=== PATIENT | female | born 1940 | race Caucasian/White ===

== ENCOUNTER 2018-04-03 18:09 | Inpatient (IN) | payer BC ==
[2018-04-03 18:46] LABS: ADD MAN DIFF? NO
[2018-04-03 18:48] LABS: WHITE BLOOD COUNT 10.5 10^3/ul (4.8-10.8)
[2018-04-03 18:48] LABS: BASOPHILS % 0.2 % (0.0-2.0); EOSINOPHILS % 0.1 % (0.0-7.0); HEMATOCRIT 40.5 % (37.0-47.0); HEMOGLOBIN 13.9 g/dl (12.0-16.0); LYMPHOCYTES # 1.2 10^3/ul (0.8-2.9); LYMPHOCYTES % 11.2 % (15.0-51.0); MEAN CORPUSCULAR HEMOGLOBIN 29.8 pg (29.0-33.0); MEAN CORPUSCULAR HGB CONC 34.3 g/dl (32.0-37.0); MEAN CORPUSCULAR VOLUME 86.9 fl (82.0-101.0); MEAN PLATELET VOLUME 9.4 fl (7.4-10.4); MONOCYTE # 0.8 10^3/ul (0.3-0.9); MONOCYTES % 7.2 % (0.0-11.0); NEUTROPHIL # 8.5 10^3/ul (1.6-7.5); NEUTROPHILS % 80.9 % (39.0-77.0); PLATELET COUNT 173 10^3/UL (140-415); RED BLOOD COUNT 4.66 10^6/ul (4.20-5.40)
[2018-04-03] MEDS: morphine 2 MG INJ IV (18:52)
[2018-04-03] MEDS: ONDANSETRON 4 MG INJ IV (18:52)
[2018-04-03 19:08] LABS: INR 0.93; PARTIAL THROMBOPLASTIN TIME 30.4 Sec (25.0-35.0); PROTIME 12.5 Sec (11.9-14.9)
[2018-04-03 19:10] LABS: ANION GAP 11 (8-16); BLOOD UREA NITROGEN 18 mg/dl (7-20); CALCIUM 10.3 mg/dl (8.4-10.2); CARBON DIOXIDE 21 mmol/L (21-31); CHLORIDE 113 mmol/L (97-110); CREATININE 0.75 mg/dl (0.44-1.00); GLUCOSE 143 mg/dl (70-220); SODIUM 142 mmol/L (135-144)
[2018-04-03 19:15] LABS: POTASSIUM 2.8 mmol/L (3.5-5.1)
[2018-04-03] MEDS: POTASSIUM CHLORIDE (SR) 20 MEQ TAB PO (20:09)
[2018-04-03] MEDS ORDERED: ACETAMINOPHEN 325 MG TAB PO (21:30)
[2018-04-03] MEDS ORDERED: ONDANSETRON 4 MG INJ IV (21:30)
[2018-04-03] MEDS: hydrALAzine 20 MG INJ IV (23:01)
[2018-04-04] MEDS: morphine 4 MG/ML VIAL IV (00:16)
[2018-04-04] MEDS ORDERED: NACL 0.9% 3 ML SYG IV (05:30)
[2018-04-04] MEDS ORDERED: ALBUTEROL/IPRATROPIUM (NEB) 3 ML AMP HHN (05:30)
[2018-04-04] MEDS ORDERED: ONDANSETRON 4 MG INJ IV (05:30)
[2018-04-04] MEDS: PANTOPRAZOLE 40 MG INJ IV (05:58)
[2018-04-04] MEDS: DEXTROSE 5%-0.45% NACL 1,000 ML IV ×2 (05:59→19:04)
[2018-04-04] MEDS: morphine 2 MG INJ IV ×3 (06:04→16:48)
[2018-04-04 06:11] LABS: ADD MAN DIFF? NO
[2018-04-04 06:23] LABS: BASOPHILS % 0.3 % (0.0-2.0); EOSINOPHILS # 0.1 10^3/ul (0.0-0.5); EOSINOPHILS % 0.5 % (0.0-7.0); HEMATOCRIT 38.5 % (37.0-47.0); HEMOGLOBIN 13.3 g/dl (12.0-16.0); LYMPHOCYTES % 10.4 % (15.0-51.0); MEAN CORPUSCULAR HEMOGLOBIN 30.1 pg (29.0-33.0); MEAN CORPUSCULAR HGB CONC 34.5 g/dl (32.0-37.0); MEAN CORPUSCULAR VOLUME 87.1 fl (82.0-101.0); MEAN PLATELET VOLUME 10.1 fl (7.4-10.4); MONOCYTE # 0.6 10^3/ul (0.3-0.9); MONOCYTES % 6.7 % (0.0-11.0); NEUTROPHIL # 7.5 10^3/ul (1.6-7.5); NEUTROPHILS % 81.8 % (39.0-77.0); PLATELET COUNT 157 10^3/UL (140-415); RED BLOOD COUNT 4.42 10^6/ul (4.20-5.40); RED CELL DISTRIBUTION WIDTH 13.2 % (11.5-14.5)
[2018-04-04 06:23] LABS: WHITE BLOOD COUNT 9.2 10^3/ul (4.8-10.8)
[2018-04-04 06:49] LABS: ALANINE AMINOTRANSFERASE 26 IU/L (13-69); ALBUMIN 3.5 g/dl (3.3-4.9); ALBUMIN/GLOBULIN RATIO 1.25; ALKALINE PHOSPHATASE 43 IU/L (42-121); ANION GAP 12 (8-16); ASPARTATE AMINO TRANSFERASE 23 IU/L (15-46); BLOOD UREA NITROGEN 16 mg/dl (7-20); CALCIUM 9.8 mg/dl (8.4-10.2); CARBON DIOXIDE 22 mmol/L (21-31); CHLORIDE 111 mmol/L (97-110); CREATININE 0.68 mg/dl (0.44-1.00); GLUCOSE 153 mg/dl (70-220); POTASSIUM 3.4 mmol/L (3.5-5.1); SODIUM 142 mmol/L (135-144); TOTAL PROTEIN 6.3 g/dl (6.1-8.1)
[2018-04-04] MEDS: HYDROCODONE/APAP (5/325) TAB PO (19:41)
[2018-04-04] MEDS: MEMANTINE 5 MG TAB PO (20:15)
[2018-04-04] MEDS: ATORVASTATIN 10 MG TAB PO (20:16)
[2018-04-04] MEDS: DONEPEZIL 5 MG TAB PO (20:17)
[2018-04-04] MEDS: HEPARIN 5,000 UNIT/0.5 ML VIAL SC (20:26)
[2018-04-04] MEDS: HALOPERIDOL 5 MG INJ IM (23:51)
[2018-04-05] MEDS: morphine 2 MG INJ IV ×4 (01:20→22:42)
[2018-04-05] MEDS: PANTOPRAZOLE 40 MG INJ IV (05:37)
[2018-04-05] MEDS: HYDROCHLOROTHIAZIDE 12.5 MG CAP PO (05:39)
[2018-04-05 06:03] LABS: ADD MAN DIFF? NO
[2018-04-05 06:21] LABS: WHITE BLOOD COUNT 8.7 10^3/ul (4.8-10.8)
[2018-04-05 06:21] LABS: BASOPHILS % 0.2 % (0.0-2.0); EOSINOPHILS % 0.2 % (0.0-7.0); HEMATOCRIT 38.3 % (37.0-47.0); HEMOGLOBIN 13.3 g/dl (12.0-16.0); LYMPHOCYTES # 0.8 10^3/ul (0.8-2.9); LYMPHOCYTES % 8.7 % (15.0-51.0); MEAN CORPUSCULAR HGB CONC 34.7 g/dl (32.0-37.0); MEAN CORPUSCULAR VOLUME 86.3 fl (82.0-101.0); MEAN PLATELET VOLUME 10.5 fl (7.4-10.4); MONOCYTE # 0.8 10^3/ul (0.3-0.9); MONOCYTES % 9.2 % (0.0-11.0); NEUTROPHIL # 7.1 10^3/ul (1.6-7.5); NEUTROPHILS % 81.1 % (39.0-77.0); PLATELET COUNT 131 10^3/UL (140-415); RED BLOOD COUNT 4.44 10^6/ul (4.20-5.40); RED CELL DISTRIBUTION WIDTH 13.1 % (11.5-14.5)
[2018-04-05 06:58] LABS: ANION GAP 12 (8-16); BLOOD UREA NITROGEN 7 mg/dl (7-20); CARBON DIOXIDE 23 mmol/L (21-31); CHLORIDE 107 mmol/L (97-110); CREATININE 0.56 mg/dl (0.44-1.00); GLUCOSE 187 mg/dl (70-220); MAGNESIUM 1.8 mg/dl (1.7-2.5); PHOSPHORUS 3.1 mg/dl (2.5-4.9); SODIUM 139 mmol/L (135-144)
[2018-04-05 07:08] LABS: POTASSIUM 2.8 mmol/L (3.5-5.1)
[2018-04-05] MEDS ORDERED: PANTOPRAZOLE (EC) 40 MG TAB PO (07:20)
[2018-04-05] MEDS: POTASSIUM CHLORIDE (SR) 20 MEQ TAB PO ×2 (07:24→09:08)
[2018-04-05] MEDS: MEMANTINE 5 MG TAB PO ×2 (08:07→22:04)
[2018-04-05] MEDS: DEXTROSE 5%-0.45% NACL 1,000 ML IV ×2 (08:07→22:03)
[2018-04-05] MEDS: ATENOLOL 50 MG TAB PO (08:08)
[2018-04-05] MEDS: HEPARIN 5,000 UNIT/0.5 ML VIAL SC ×2 (08:10→22:04)
[2018-04-05] MEDS ORDERED: MECLIZINE 12.5 MG TAB PO ×2 (09:00)
[2018-04-05 12:04] LABS: ANION GAP 9 (8-16); BLOOD UREA NITROGEN 6 mg/dl (7-20); CALCIUM 9.1 mg/dl (8.4-10.2); CARBON DIOXIDE 25 mmol/L (21-31); CHLORIDE 104 mmol/L (97-110); CREATININE 0.49 mg/dl (0.44-1.00); GLUCOSE 145 mg/dl (70-220); POTASSIUM 3.3 mmol/L (3.5-5.1); SODIUM 135 mmol/L (135-144)
[2018-04-05 16:59] LABS: CHOL/HDL RATIO 2.6 RATIO; HDL CHOLESTEROL 85 mg/dl (33-92); LDL CHOLESTEROL,CALCULATED 105 mg/dl; TRIGLYCERIDES 166 mg/dl (0-149)
[2018-04-05 16:59] LABS: CHOLESTEROL 223 mg/dl (100-200)
[2018-04-05 17:04] LABS: HEMOGLOBIN A1C 5.6 % (0-5.9)
[2018-04-05 17:08] LABS: B-TYPE NATRIURETIC PEPTIDE 1090 PG/ML (0-450)
[2018-04-05 17:29] LABS: THYROID STIMULATING HORMONE 0.668 MIU/L (0.465-4.680)
[2018-04-05 17:45] LABS: TROPONIN-I < 0.012 ng/ml (0.000-0.120)
[2018-04-05] MEDS: ATORVASTATIN 10 MG TAB PO (22:03)
[2018-04-05] MEDS: DONEPEZIL 5 MG TAB PO (22:04)
[2018-04-06 01:17] LABS: TROPONIN-I 0.014 ng/ml (0.000-0.120)
[2018-04-06] MEDS: morphine 2 MG INJ IV ×3 (04:17→13:45)
[2018-04-06 05:46] LABS: TROPONIN-I < 0.012 ng/ml (0.000-0.120)
[2018-04-06] MEDS: PANTOPRAZOLE 40 MG INJ IV (06:04)
[2018-04-06] MEDS: HEPARIN 5,000 UNIT/0.5 ML VIAL SC ×2 (09:00→21:00)
[2018-04-06] MEDS: ATENOLOL 50 MG TAB PO (09:00)
[2018-04-06] MEDS: MEMANTINE 5 MG TAB PO ×2 (09:00→21:23)
[2018-04-06] MEDS ORDERED: LORAZEPAM 2 MG INJ IV (09:30)
[2018-04-06] MEDS: DEXTROSE 5%-0.45% NACL 1,000 ML IV (11:42)
[2018-04-06 13:31] LABS: TROPONIN-I < 0.012 ng/ml (0.000-0.120)
[2018-04-06 18:56] LABS: TROPONIN-I < 0.012 ng/ml (0.000-0.120)
[2018-04-06] MEDS: ATORVASTATIN 10 MG TAB PO (21:23)
[2018-04-06] MEDS: DONEPEZIL 5 MG TAB PO (21:23)
[2018-04-07] MEDS: DEXTROSE 5%-0.45% NACL 1,000 ML IV ×2 (01:14→13:27)
[2018-04-07 01:21] LABS: TROPONIN-I < 0.012 ng/ml (0.000-0.120)
[2018-04-07] MEDS: morphine 2 MG INJ IV (02:02)
[2018-04-07 05:17] LABS: ADD MAN DIFF? NO
[2018-04-07 05:30] LABS: BASOPHILS % 0.7 % (0.0-2.0); EOSINOPHILS # 0.4 10^3/ul (0.0-0.5); EOSINOPHILS % 7.1 % (0.0-7.0); HEMATOCRIT 39.5 % (37.0-47.0); HEMOGLOBIN 13.7 g/dl (12.0-16.0); LYMPHOCYTES # 0.9 10^3/ul (0.8-2.9); LYMPHOCYTES % 17.3 % (15.0-51.0); MEAN CORPUSCULAR HGB CONC 34.7 g/dl (32.0-37.0); MEAN CORPUSCULAR VOLUME 86.4 fl (82.0-101.0); MEAN PLATELET VOLUME 10.3 fl (7.4-10.4); MONOCYTE # 0.6 10^3/ul (0.3-0.9); MONOCYTES % 11.7 % (0.0-11.0); NEUTROPHIL # 3.4 10^3/ul (1.6-7.5); PLATELET COUNT 157 10^3/UL (140-415); RED BLOOD COUNT 4.57 10^6/ul (4.20-5.40); RED CELL DISTRIBUTION WIDTH 12.7 % (11.5-14.5)
[2018-04-07 05:30] LABS: WHITE BLOOD COUNT 5.4 10^3/ul (4.8-10.8)
[2018-04-07 05:41] LABS: MAGNESIUM 2.1 mg/dl (1.7-2.5)
[2018-04-07 05:41] LABS: PHOSPHORUS 3.6 mg/dl (2.5-4.9)
[2018-04-07 06:04] LABS: ANION GAP 11 (8-16); BLOOD UREA NITROGEN 9 mg/dl (7-20); CALCIUM 9.6 mg/dl (8.4-10.2); CARBON DIOXIDE 25 mmol/L (21-31); CHLORIDE 108 mmol/L (97-110); CREATININE 0.55 mg/dl (0.44-1.00); GLUCOSE 145 mg/dl (70-220); POTASSIUM 3.6 mmol/L (3.5-5.1); SODIUM 140 mmol/L (135-144)
[2018-04-07] MEDS: PANTOPRAZOLE 40 MG INJ IV (06:13)
[2018-04-07] MEDS: ATENOLOL 50 MG TAB PO (08:59)
[2018-04-07] MEDS: HEPARIN 5,000 UNIT/0.5 ML VIAL SC ×2 (08:59→21:03)
[2018-04-07] MEDS: MEMANTINE 5 MG TAB PO ×2 (08:59→21:00)
[2018-04-07] MEDS: POLYMYXIN/BACITRACIN 1L IRRIG (13:39)
[2018-04-07] MEDS ORDERED: GLYCOPYRROLATE 0.4 MG INJ (13:44)
[2018-04-07] MEDS ORDERED: SUCCINYLCHOLINE CHLORIDE 100 MG/5 ML SYG IV (13:44)
[2018-04-07] MEDS ORDERED: PROPOFOL 20 ML (13:44)
[2018-04-07] MEDS ORDERED: LIDOCAINE 2% (SDV) 5 ML INJ (13:44)
[2018-04-07] MEDS ORDERED: ROCURONIUM 50 MG INJ (13:44)
[2018-04-07] MEDS ORDERED: MEPERIDINE 100 MG INJ (13:44)
[2018-04-07] MEDS ORDERED: NEOSTIGMINE 3 MG/3 ML SYRINGE (13:44)
[2018-04-07] MEDS ORDERED: CEFAZOLIN 1 GM INJ ×2 (14:49)
[2018-04-07] MEDS ORDERED: METOCLOPRAMIDE 10 MG INJ (15:48)
[2018-04-07] MEDS ORDERED: ONDANSETRON 4 MG INJ (15:48)
[2018-04-07] MEDS ORDERED: EPHEDrine SULFATE 50 MG/5 ML SYG IV (16:00)
[2018-04-07] MEDS ORDERED: LABETALOL HCL 20MG INJ IV (16:00)
[2018-04-07] MEDS ORDERED: OXYCODONE/ACETAMINOPHEN (5/325) TAB PO ×2 (16:00)
[2018-04-07] MEDS ORDERED: HYDROmorphONE 1 MG/5 ML IV SYRINGE IV (16:00)
[2018-04-07] MEDS ORDERED: FENTAnyl 50 MCG/ML VIAL IV ×3 (16:00)
[2018-04-07] MEDS ORDERED: METOCLOPRAMIDE 10 MG INJ IV (16:00)
[2018-04-07] MEDS ORDERED: MIDAZOLAM 1 MG/ML 2 ML INJ IV (16:00)
[2018-04-07] MEDS: HYDROmorphONE 1 MG/5 ML IV SYRINGE IV ×2 (16:53→17:04)
[2018-04-07] MEDS: ONDANSETRON 4 MG INJ IV (16:53)
[2018-04-07] MEDS ORDERED: NACL 0.9% 3 ML SYG IV (17:00)
[2018-04-07] MEDS ORDERED: morphine 4 MG/ML VIAL IV (17:00)
[2018-04-07 17:06] LABS: ADD MAN DIFF? NO
[2018-04-07 17:07] LABS: BASOPHIL # 0.1 10^3/ul (0.0-0.1); BASOPHILS % 0.5 % (0.0-2.0); EOSINOPHILS # 0.4 10^3/ul (0.0-0.5); EOSINOPHILS % 3.6 % (0.0-7.0); HEMOGLOBIN 12.8 g/dl (12.0-16.0); LYMPHOCYTES # 1.1 10^3/ul (0.8-2.9); LYMPHOCYTES % 11.2 % (15.0-51.0); MEAN CORPUSCULAR HEMOGLOBIN 29.9 pg (29.0-33.0); MEAN CORPUSCULAR HGB CONC 33.7 g/dl (32.0-37.0); MEAN CORPUSCULAR VOLUME 88.8 fl (82.0-101.0); MEAN PLATELET VOLUME 9.9 fl (7.4-10.4); MONOCYTE # 0.9 10^3/ul (0.3-0.9); MONOCYTES % 8.8 % (0.0-11.0); NEUTROPHIL # 7.5 10^3/ul (1.6-7.5); NEUTROPHILS % 75.4 % (39.0-77.0); PLATELET COUNT 176 10^3/UL (140-415); RED BLOOD COUNT 4.28 10^6/ul (4.20-5.40); RED CELL DISTRIBUTION WIDTH 12.4 % (11.5-14.5)
[2018-04-07 17:07] LABS: WHITE BLOOD COUNT 9.9 10^3/ul (4.8-10.8)
[2018-04-07] MEDS: CEFAZOLIN 1 GM/50 ML (PMX) 50 ML IVPB (17:36)
[2018-04-07] MEDS: MEPERIDINE 25 MG INJ IV (17:36)
[2018-04-07 17:39] LABS: ANION GAP 12 (8-16); BLOOD UREA NITROGEN 12 mg/dl (7-20); CALCIUM 9.5 mg/dl (8.4-10.2); CARBON DIOXIDE 24 mmol/L (21-31); CHLORIDE 108 mmol/L (97-110); CREATININE 0.62 mg/dl (0.44-1.00); GLUCOSE 151 mg/dl (70-220); POTASSIUM 3.9 mmol/L (3.5-5.1); SODIUM 140 mmol/L (135-144)
[2018-04-07] MEDS: hydrALAzine 20 MG INJ IV (18:00)
[2018-04-07] MEDS: DIPHENHYDRAMINE 50 MG INJ IV (18:00)
[2018-04-07] MEDS ORDERED: HYDROCODONE/APAP (5/325) TAB NGT (18:00)
[2018-04-07] MEDS: DEXTROSE 5%-LR 1,000 ML IV (19:58)
[2018-04-07] MEDS: ATORVASTATIN 10 MG TAB PO (21:00)
[2018-04-07] MEDS: DONEPEZIL 5 MG TAB PO (21:00)
[2018-04-08] MEDS: CEFAZOLIN 1 GM/50 ML (PMX) 50 ML IVPB ×2 (00:22→09:16)
[2018-04-08] MEDS: morphine 2 MG INJ IV ×2 (01:04→05:32)
[2018-04-08 05:21] LABS: ADD MAN DIFF? NO
[2018-04-08] MEDS: DEXTROSE 5%-LR 1,000 ML IV ×3 (05:26→18:51)
[2018-04-08] MEDS: PANTOPRAZOLE 40 MG INJ IV (05:26)
[2018-04-08 05:27] LABS: WHITE BLOOD COUNT 6.6 10^3/ul (4.8-10.8)
[2018-04-08 05:27] LABS: ABNORMAL IP MESSAGE 1; BASOPHILS % 0.3 % (0.0-2.0); EOSINOPHILS % 0.2 % (0.0-7.0); HEMATOCRIT 32.9 % (37.0-47.0); HEMOGLOBIN 11.4 g/dl (12.0-16.0); LYMPHOCYTES # 0.5 10^3/ul (0.8-2.9); LYMPHOCYTES % 6.9 % (15.0-51.0); MEAN CORPUSCULAR HEMOGLOBIN 30.1 pg (29.0-33.0); MEAN CORPUSCULAR HGB CONC 34.7 g/dl (32.0-37.0); MEAN CORPUSCULAR VOLUME 86.8 fl (82.0-101.0); MEAN PLATELET VOLUME 10.5 fl (7.4-10.4); MONOCYTE # 0.9 10^3/ul (0.3-0.9); MONOCYTES % 13.9 % (0.0-11.0); NEUTROPHIL # 5.2 10^3/ul (1.6-7.5); NEUTROPHILS % 78.2 % (39.0-77.0); PLATELET COUNT 158 10^3/UL (140-415); RED BLOOD COUNT 3.79 10^6/ul (4.20-5.40); RED CELL DISTRIBUTION WIDTH 12.7 % (11.5-14.5)
[2018-04-08 05:33] LABS: POSITIVE DIFF @See below
[2018-04-08 05:55] LABS: PHOSPHORUS 2.6 mg/dl (2.5-4.9)
[2018-04-08 05:55] LABS: MAGNESIUM 1.8 mg/dl (1.7-2.5)
[2018-04-08 05:56] LABS: ANION GAP 11 (8-16); BLOOD UREA NITROGEN 11 mg/dl (7-20); CALCIUM 9.2 mg/dl (8.4-10.2); CARBON DIOXIDE 24 mmol/L (21-31); CHLORIDE 106 mmol/L (97-110); CREATININE 0.49 mg/dl (0.44-1.00); GLUCOSE 158 mg/dl (70-220); POTASSIUM 3.6 mmol/L (3.5-5.1); SODIUM 137 mmol/L (135-144)
[2018-04-08] MEDS ORDERED: ENOXAPARIN 40 MG/0.4 ML SYG SC (09:00)
[2018-04-08] MEDS: MEMANTINE 5 MG TAB PO ×2 (09:17→20:49)
[2018-04-08] MEDS: ATENOLOL 50 MG TAB PO (09:20)
[2018-04-08] MEDS: traMADol 50 MG TAB PO (09:20)
[2018-04-08] MEDS: HEPARIN 5,000 UNIT/0.5 ML VIAL SC ×2 (09:22→20:59)
[2018-04-08] MEDS: HYDROCODONE/APAP (5/325) TAB PO (13:10)
[2018-04-08] MEDS: DONEPEZIL 5 MG TAB PO (20:49)
[2018-04-08] MEDS: ATORVASTATIN 10 MG TAB PO (20:49)
[2018-04-09] MEDS: traMADol 50 MG TAB PO (00:36)
[2018-04-09 05:16] LABS: ADD MAN DIFF? NO
[2018-04-09] MEDS: PANTOPRAZOLE 40 MG INJ IV (05:16)
[2018-04-09 05:17] LABS: BASOPHILS % 0.5 % (0.0-2.0); EOSINOPHILS # 0.2 10^3/ul (0.0-0.5); EOSINOPHILS % 2.4 % (0.0-7.0); HEMATOCRIT 29.2 % (37.0-47.0); LYMPHOCYTES # 0.8 10^3/ul (0.8-2.9); LYMPHOCYTES % 12.2 % (15.0-51.0); MEAN CORPUSCULAR HEMOGLOBIN 29.8 pg (29.0-33.0); MEAN CORPUSCULAR HGB CONC 34.2 g/dl (32.0-37.0); MEAN CORPUSCULAR VOLUME 86.9 fl (82.0-101.0); MEAN PLATELET VOLUME 10.1 fl (7.4-10.4); MONOCYTES % 14.8 % (0.0-11.0); NEUTROPHIL # 4.6 10^3/ul (1.6-7.5); NEUTROPHILS % 69.6 % (39.0-77.0); PLATELET COUNT 155 10^3/UL (140-415); RED BLOOD COUNT 3.36 10^6/ul (4.20-5.40); RED CELL DISTRIBUTION WIDTH 12.3 % (11.5-14.5)
[2018-04-09 05:17] LABS: WHITE BLOOD COUNT 6.6 10^3/ul (4.8-10.8)
[2018-04-09 05:35] LABS: PHOSPHORUS 2.6 mg/dl (2.5-4.9)
[2018-04-09 05:36] LABS: ANION GAP 11 (8-16); BLOOD UREA NITROGEN 10 mg/dl (7-20); CALCIUM 9.1 mg/dl (8.4-10.2); CARBON DIOXIDE 26 mmol/L (21-31); CHLORIDE 104 mmol/L (97-110); GLUCOSE 128 mg/dl (70-220); POTASSIUM 3.3 mmol/L (3.5-5.1); SODIUM 138 mmol/L (135-144)
[2018-04-09] MEDS: POTASSIUM CHLORIDE (SR) 20 MEQ TAB PO (06:26)
[2018-04-09] MEDS: DEXTROSE 5%-LR 1,000 ML IV (08:17)
[2018-04-09] MEDS: POLYETHYLENE GLYCOL 17 GM PACKET PO (08:17)
[2018-04-09] MEDS: DOCUSATE SODIUM 100 MG CAP PO (08:17)
[2018-04-09] MEDS: MEMANTINE 5 MG TAB PO (08:17)
[2018-04-09] MEDS: ATENOLOL 50 MG TAB PO (08:19)
[2018-04-09] MEDS: HEPARIN 5,000 UNIT/0.5 ML VIAL SC (08:40)
[2018-04-09] MEDS: HYDROCORTISONE 1% 28 GM CR TOP (16:19)
== END 2018-04-09 19:15 | DRG 470 ==
LOC: E/R 18:09 → MS1 21:06
PROC: 0SRS0JZ Replacement of Left Hip Joint, Femoral Surface with Synthetic Substitute, Open Approach (ICD-10-PCS; principal; 2018-04-07 13:30)
DX: S72.012A Unspecified intracapsular fracture of left femur, initial encounter for closed fracture (principal); I10 Essential (primary) hypertension; F03.90 Unspecified dementia, unspecified severity, without behavioral disturbance, psychotic disturbance, mood disturbance, and anxiety; E87.6 Hypokalemia; S50.02XA Contusion of left elbow, initial encounter; K21.9 Gastro-esophageal reflux disease without esophagitis; W01.0XXA Fall on same level from slipping, tripping and stumbling without subsequent striking against object, initial encounter; E11.9 Type 2 diabetes mellitus without complications
CPT/HCPCS: 71045; 72192; 73080-LT; 73510; 80048; 80053; 80061; 83036; 83735; 83880; 84100; 84443; 84484; 85025; 85610; 85730; 88304; 88311; 93005; 93306; 96374; 96375; 97110; 97116; 97161; 97530; 99285-25